=== PATIENT | male | born 1945 | race Caucasian/White ===

== ENCOUNTER 2019-06-26 12:38 | Outpatient (CLI) | payer MEDICARE, OTHER ==
--- NOTE | 2019-06-26 14:30 | RAD ---
2 VIEWS CHEST: Date: 06/26/19 HISTORY: Dyspnea. COMPARISON: 10/11/11. FINDINGS: Borderline cardiomegaly. Mild vascular engorgement, stable. Lungs appear clear of infiltrate. No sign ificant effusion. Pacemaker leads are again noted. Aortic calcification. Osseous structures unremarka ble. IMPRESSION: Chronic changes appear stable. No acute process. POS: [facility]
== END 2019-06-26 12:39 | disposition home or self-care (01) ==
LOC: RAD 12:38
PROVIDERS: ATTEND Internal Medicine Critical Care Medicine
DX: R06.00 Dyspnea, unspecified (principal)
CPT/HCPCS: 71046

== ENCOUNTER 2021-05-23 05:36 | Day surgery (SDC) | payer MEDICARE, OTHER ==
[2021-05-20 10:05] VITALS: BMI 35.6
[2021-05-23] MEDS ORDERED: Lidocaine 1% (PF) 30 ML VIAL ONE (06:29)
[2021-05-23] MEDS ORDERED: Heparin 10,000 UNITS/ 10 ML VIAL ONE (06:29)
[2021-05-23] MEDS ORDERED: Fentanyl 100 MCG/2 ML VIAL ONE (07:06)
[2021-05-23] MEDS ORDERED: Midazolam HCl 2 mg/2 ml Vial ONE (07:06)
[2021-05-23] MEDS ORDERED: Iopamidol 370 76% 50 ML VIAL FS ONE (15:16)
== END 2021-05-23 10:25 | disposition home or self-care (01) ==
LOC: SDC 05:36
PROVIDERS: ATTEND Thoracic Surgery (Cardiothoracic Vascular Surgery)
PROC: 04713DZ Dilation of Celiac Artery with Intraluminal Device, Percutaneous Approach (ICD-10-PCS; principal; 2021-05-23)
PROC: 04753DZ Dilation of Superior Mesenteric Artery with Intraluminal Device, Percutaneous Approach (ICD-10-PCS; 2021-05-23)
DX: K55.059 Acute (reversible) ischemia of intestine, part and extent unspecified (principal); I77.4 Celiac artery compression syndrome; K55.1 Chronic vascular disorders of intestine; I11.0 Hypertensive heart disease with heart failure; I50.1 Left ventricular failure, unspecified; E11.9 Type 2 diabetes mellitus without complications; E78.2 Mixed hyperlipidemia; M10.9 Gout, unspecified; K21.9 Gastro-esophageal reflux disease without esophagitis; G47.30 Sleep apnea, unspecified; E55.9 Vitamin D deficiency, unspecified; E53.8 Deficiency of other specified B group vitamins; G89.29 Other chronic pain; M54.9 Dorsalgia, unspecified; E66.09 Other obesity due to excess calories; Z68.35 Body mass index [BMI] 35.0-35.9, adult; Z87.891 Personal history of nicotine dependence; Z79.01 Long term (current) use of anticoagulants; Z79.84 Long term (current) use of oral hypoglycemic drugs; Z79.899 Other long term (current) drug therapy
CPT/HCPCS: 36245; 37236; 37237; 75726; 76942; 85347; 99152; 99153; J1644; J2001; J2250; J3010; Q9967